=== PATIENT | female | born 1955 | race Caucasian/White ===

== ENCOUNTER 2016-10-31 08:32 | Day surgery (SDC) | payer OTHER ==
[~2016-10-31 08:32] MED LIST: LIDOCAINE HCL 1% MPF SOL ONE; PROPOFOL 500 MG/50 ML EMU IV ONE
[2016-10-31 10:25] VITALS: TEMP 97.7
[2016-10-31 10:54] VITALS: O2SAT 100
[2016-10-31 11:04] VITALS: PULSE 83; RESP 18
[2016-10-31 11:16] VITALS: BP 167/94
== END 2016-10-31 11:28 | disposition home or self-care (01) | DRG 951 ==
LOC: SURG 08:32
PROVIDERS: ATTEND Internal Medicine Gastroenterology
DX: Z12.11 Encounter for screening for malignant neoplasm of colon (principal); D12.2 Benign neoplasm of ascending colon; K57.30 Diverticulosis of large intestine without perforation or abscess without bleeding; K64.8 Other hemorrhoids; D12.4 Benign neoplasm of descending colon
CPT/HCPCS: 99001; J2001; J2704

== ENCOUNTER 2017-10-13 18:40 | Emergency (ER) | payer OTHER ==
[2017-10-13] MEDS ORDERED: ONDANSETRON HCL 4 MG TAB PO ONE (19:51)
[2017-10-13] MEDS ORDERED: MECLIZINE HYDROCHLORIDE 12.5 MG TAB PO ONE (19:51)
[2017-10-13 19:56] LABS: BASOPHILS % (AUTO) 1 % (0-3); EOSINOPHILS % (AUTO) 1 % (0-9); HEMATOCRIT 40 % (35-47); MEAN CORPUSCULAR HGB CONC 33.1 gm/dl (32.0-36.0); MEAN CORPUSCULAR VOLUME 90 fL (81-99); MONOCYTES % (AUTO) 8.8 % (0-12); NEUTROPHILS % (AUTO) 68.1 % (37-80)
[2017-10-13] MEDS ORDERED: ONDANSETRON HCL 4 MG TAB ONE (19:58)
[2017-10-13] MEDS ORDERED: MECLIZINE HYDROCHLORIDE 12.5 MG TAB ONE (19:58)
[2017-10-13 20:00] VITALS: TEMP 98.2
[2017-10-13 20:03] LABS: CALCIUM 8.8 mg/dl (8.5-10.1); POTASSIUM 3.8 mMol/L (3.5-5.1)
[2017-10-13 20:15] LABS: APPEARANCE,URINE Clear; BILIRUBIN,URINE NEGATIVE (NEGATIVE); COLOR,URINE Yellow; GLUCOSE, URINE (UA) NEGATIVE (NEGATIVE); KETONES,URINE NEGATIVE (NEGATIVE); LEUKOCYTE ESTERASE ,URINE NEGATIVE (NEGATIVE); NITRATE,URINE NEGATIVE (NEGATIVE); OCCULT BLOOD,URINE NEGATIVE (NEG-TRACE); UROBILINOGEN,URINE 0.2 (0.2-1.0 EU)
[2017-10-13 20:54] LABS: RBC,URINE 0-2 (0-3AV/HPF); WBC,URINE 0-2 (0-5AV/HPF)
[2017-10-14 08:43] VITALS: O2SAT 98
[2017-10-14 08:45] VITALS: BP 144/95; PULSE 74; RESP 16
== END 2017-10-13 22:07 | disposition home or self-care (01) | DRG 149 ==
LOC: ED 18:40
DX: R42 Dizziness and giddiness (principal); R11.2 Nausea with vomiting, unspecified
CPT/HCPCS: 36415; 80048; 81001; 85025; 99285; A9270-GY